=== PATIENT | female | born 1980 | race Caucasian/White ===

== ENCOUNTER → 2017-03-12 | Outpatient (CLI) | payer OTHER ==
[~2017-03-12] MED LIST: VOLTAREN75 MG PO
--- NOTE | 2017-03-12 16:14 | RADIOLOGY REPORT PS360 ---
ANKLE-RT-3 VIEWS Ordering Physician: GUCCI JOE MD Patient Age: 36 years: Female HISTORY: INJURY RT ANKLEone year ago with persistent pain. TECHNIQUE: 3 views right ankle COMPARISON is made to November 2016 right ankle study. & FINDINGS No acute fracture nor dislocation. Ankle mortise intact. Dome of talus intact . No new findings . We again see the stable osseous fragment & irregularities off the tip of the lateral malleolus- unchanged since previous studies. Findings reflect old trauma here. IMPRESSION: . stable right ankle. 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 unchanged since November 2016 exam
== END ==
LOC: RAD 09:04
DX: S99.911D Unspecified injury of right ankle, subsequent encounter (principal)